=== PATIENT | male | born 1970 | race Caucasian/White ===

== ENCOUNTER 2016-04-07 09:17 | Emergency (ER) | payer OTHER ==
[~2016-04-07] VITALS: Ht 170.2 cm; Wt 77.3 kg
[2016-04-07] MEDS ORDERED: KETOROLAC TROMETHAMINE 30 MG/ML VIAL IM ONE (10:45)
[2016-04-07 11:18] VITALS: BP 145/88
== END 2016-04-07 11:48 | disposition home or self-care (01) ==
LOC: EMS 09:24
DX: S39.011A Strain of muscle, fascia and tendon of abdomen, initial encounter (principal); X58.XXXA Exposure to other specified factors, initial encounter; Y93.89 Activity, other specified; Y92.9 Unspecified place or not applicable; Y99.9 Unspecified external cause status
CPT/HCPCS: 96372; 99283; J1885